=== PATIENT | male | born 1980 | race Caucasian/White ===

== ENCOUNTER 2017-08-17 19:43 | Emergency (ER) | payer OTHER ==
[~2017-08-17] VITALS: Ht 175.3 cm; Wt 92.7 kg
[2017-08-17 19:46] VITALS: BP 142/84; PULSE 94; TEMP 97.8
== END 2017-08-17 22:02 | disposition home or self-care (01) ==
LOC: COL.ER 19:43
DX: S61.211A Laceration without foreign body of left index finger without damage to nail, initial encounter (principal); W26.0XXA Contact with knife, initial encounter